=== PATIENT | male | born 1985 | race Hispanic/Latino ===

== ENCOUNTER 2019-02-17 23:53 | Emergency (ER) | payer OTHER, SELFPAY ==
[2019-02-18] MEDS ORDERED: Ondansetron PF 4 MG/2 ML Vial ONE (00:56)
[2019-02-18] MEDS ORDERED: Morphine 4 MG/ML VIAL ONE (00:56)
[2019-02-18] MEDS ORDERED: Adacel (T-DAP) 0.5 ML SYRINGE ONE ×2 (00:56→01:12)
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
--- NOTE | 2019-02-18 11:01 | RAD ---
RIGHT FOOT 3 VIEWS: HISTORY: Foot injury. FINDINGS: There is an obliquely oriented intraarticular fracture involving the medial corner of the base of the proximal phalanx of the great toe. Also, fractures involving the 2nd, 3rd, and 4th metatarsal head and neck regions. There is dislocation at the metatarsophalangeal joint of the little toe. Lisfranc 's joint is in normal alignment. No other findings. IMPRESSION: Fractures and dislocation as described above. POS: [facility]
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
== END 2019-02-18 02:11 | disposition home or self-care (01) ==
LOC: ERS 23:53
DX: S92.321A Displaced fracture of second metatarsal bone, right foot, initial encounter for closed fracture (principal); S92.331A Displaced fracture of third metatarsal bone, right foot, initial encounter for closed fracture; S92.341A Displaced fracture of fourth metatarsal bone, right foot, initial encounter for closed fracture; S20.219A Contusion of unspecified front wall of thorax, initial encounter; V43.62XA Car passenger injured in collision with other type car in traffic accident, initial encounter
CPT/HCPCS: 28630; 70450; 71045; 72125; 90471; 90715; 93005; 96374; 96375; J2270; J2405